=== PATIENT | male | born 1950 | race Caucasian/White ===

== ENCOUNTER 2017-03-18 08:03 | Day surgery (SDC) | payer OTHER ==
[2017-03-13 15:16] VITALS: BMI 30.9
[2017-03-18 08:34] VITALS: TEMP 97.6
[2017-03-18 08:47] LABS: BASOPHIL 0.7 % (0-2.0); EOSINOPHIL 1.6 % (0-4.5); MCH 29.5 pg (25.7-33.7); MCHC 32.8 g/dl (32.0-35.9); MEAN PLT VOLUME 9.1 fl (7.5-11.1); NEUTROPHILS 67.4 % (42.8-82.8); PLATELET COUNT 191 K/MM3 (134-434); RDW 15.3 % (11.9-15.9); WHITE BLOOD COUNT 7.1 K/mm3 (4.0-10.0)
[2017-03-18 08:48] LABS: INR 0.97 (0.82-1.09)
[2017-03-18 13:09] VITALS: BP 146/72; PULSE 54
--- NOTE | 2017-03-21 16:46 | PATH ---
Surgical Pathology Report Patient Name: CORINNE HDZ [facility]. Rec. #: [id number] /Age/Gender: 1950 (Age: 66) / M Account: [id number] Location: RADIOLOGY Taken: 03/18/2017 Received: 03/18/2017 Reported: 03/21/2017 Physicians: Camilo Cantrell M.D. Specimen(s) Received LEFT LYMPH NODE Clinical History Preoperative diagnosis: 66-year-old male with prominent left neck lymph node Postoperative diagnosis: Left neck lymph nodes significantly enlarged Final Diagnosis LYMPH NODE, LEFT NECK, BIOPSY: LIMITED SPECIMEN WITH BENIGN LYMPHOID TISSUE. SEE COMMENT. Comment: Histologic sections show scant cores of lymphoid and fibroadipose tissue. The lymphoid tissue has a vaguely nodular architecture. The nodules are compromised predominantly of small polymorphous lymphocytes. No definitive germinal center formation is seen. Scattered prominent blood vessels are present. Immunohistochemical stains are attempted with appropriate controls. Unfortunately, the majority of the scant tissue is exhausted. Only a very small focus of lymphocytes remains. Within this limited area, stains for CD20 and CD3 show the lymphocytes to be compromised of a mixture of B-cells and T-cells. A stain for CD5 is similar to CD3, while Bcl-2 stains both B-cells and T-cells. Stains for CD10, BCL-6, and Cyclin D-1 are essentially negative in lymphocytes. Stains for CD21 and CD23 highlight a rare focus of follicular dendritic cells within a portion of a nodule. A stain for CD34 highlights scattered blood vessels. In situ hybridization for Ferney and Lambda light chains shows rare plasma cells to be polytypic. The amount of tissue is very limited and may not be personal service representative of the entire mass. Please correlate clinically and with other laboratory findings. Case was sent to Dr. Bautista from [facility] in [place], [place], the diagnosis reflects his opinion. FLOW CYTOMETRY performed and interpreted at [facility], [place], [place] ([id number]) shows Final Diagnosis : Limited sample, suboptimal for evaluation; clonal B-cell population are not detected. See [facility] reports ([id number] and [id number]) for additional details. Electronically Signed Gabby Hummel M.D. Gross Description Received in formalin labeled "left lymph node," are 3 wilder, cylindrical portions of soft tissue ranging from 0.3-0.6 cm in length and averaging 0.1 cm in diameter. The specimens are submitted in toto in one cassette. 03/18/201703/18/2017
== END 2017-03-18 12:45 | disposition home or self-care (01) ==
LOC: JRADIR 08:03
PROVIDERS: ATTEND Surgery
PROC: BW4FZZZ Ultrasonography of Neck (ICD-10-PCS; principal; 2017-03-18)
PROC: 07D Lymphatic and Hemic Systems, Extraction (ICD-10-PCS; 2017-03-18)
DX: R59.0 Localized enlarged lymph nodes (principal)
CPT/HCPCS: 36415; 76942-TC; 85025; 85610; 87899; 88305-TC

== ENCOUNTER 2022-02-16 04:25 | Day surgery (SDC) | payer OTHER ==
[2022-02-15 10:36] VITALS: BMI 32.3
[2022-02-16] MEDS ORDERED: DEXAMETHASONE SOD PHOSPHATE 10 MG/1 ML VIAL ONE (08:04)
[2022-02-16] MEDS ORDERED: LIDOCAINE HCL/PF 1% SDV 5ML VIAL ONE (08:09)
[2022-02-16] MEDS ORDERED: SODIUM CHLORIDE 0.9% P/F 10 ML VIAL IJ ONE (08:33)
[2022-02-16 10:05] VITALS: RESP 18
[2022-02-16] MEDS ORDERED: DEXAMETHASONE SOD PHOSPHATE 10 MG/1 ML VIAL IVPUSH ONE ×3 (10:30→11:10)
[2022-02-16] MEDS ORDERED: LIDOCAINE HCL 1% PRESERVATIVE FREE - 30ML VIAL EP ONE ×3 (10:31→11:10)
[2022-02-16 13:06] VITALS: BP 155/68; PULSE 56; TEMP 98.6
== END 2022-02-16 12:05 | disposition home or self-care (01) ==
LOC: JASU-SURG 04:25
PROVIDERS: ATTEND Pain Medicine Pain Medicine
PROC: 3E0R33Z Introduction of Anti-inflammatory into Spinal Canal, Percutaneous Approach (ICD-10-PCS; 2022-02-16)
PROC: B01BYZZ Fluoroscopy of Spinal Cord using Other Contrast (ICD-10-PCS; 2022-02-16)
PROC: 3E0R3BZ Introduction of Anesthetic Agent into Spinal Canal, Percutaneous Approach (ICD-10-PCS; principal; 2022-02-16 10:45)
DX: M54.16 Radiculopathy, lumbar region (principal); M48.061 Spinal stenosis, lumbar region without neurogenic claudication; I10 Essential (primary) hypertension
CPT/HCPCS: 76000-TC-FY; J1100